=== PATIENT | male | born 1985 | race Caucasian/White ===

== ENCOUNTER 2024-08-07 09:33 | Emergency (ER) | payer OTHER, SELFPAY ==
[2024-08-07 09:36] VITALS: BP 117/78
[2024-08-07 09:55] LABS: % Basophils 0.2 % (0-2); % Eosinophils 0.4 % (0-6); % Immature Granulocytes 0.2 % (0-0.5); % Lymphocytes 23.8 % (20.5-51.1); % Monocytes 7.6 % (1.7-9.3); % Neutrophils 67.8 % (42.2-75.2); Absolute Lymphocytes 1.1 10^3/uL (1.2-3.4); Absolute Monocytes 0.4 10^3/uL (0.1-0.6); Absolute Neutrophils 3.1 10^3/uL (1.4-6.5); Hematocrit 43.4 % (39.0-52.0); Mean Corp Hgb Conc. 36.9 g/dL (33.0-37.0); Mean Corpuscular Hgb 31.4 pg (27.0-31.0); Mean Corpuscular Volume 85.1 fL (80.0-94.0); Mean Platelet Volume 9.8 fL (7.4-10.4); Nucleated Red Blood Cells % 0 % (-); Platelet Count 269 10^3/uL (130-400); Red Cell Dist. Width 11.9 % (11.5-14.5); White Blood Cell Count 4.6 10^3/uL (4.8-10.8)
[2024-08-07 10:16] LABS: ALT (SGPT) 73 U/L (0-50); AST (SGOT) 36 U/L (17-59); Albumin 5.5 g/dl (3.5-5.0); Alkaline Phosphatase 66 U/L (38-126); Blood Urea Nitrogen 15 mg/dl (9-20); Calcium 9.9 mg/dl (8.4-10.2); Carbon Dioxide 24 mmol/L (22-30); Chloride 100 mmol/L (98-107); Glucose 132 mg/dl (70-99); Potassium 5.3 mmol/L (3.5-5.1); Sodium 137 mmol/L (135-145); Total Bilirubin 0.8 mg/dl (0.2-1.3); eGFR > 60.00
--- NOTE | 2024-08-07 11:03 | ED.GENMED ---
History of Present Illness
General
Chief Complaint: Fainting/Passed Out
Source: patient
Exam Limitations: none
Time Seen by Provider: 08/07/24 10:48
History of Present Illness
History of Present Illness:
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 He was doing [employer] exercises. He felt short of breath during these exercises which is not focal for him. They then were
sitting on the mat having a discussion about 10 minutes after the exertion he was noticed to have a syncopal episode. He remembers waking up on the floor talking to the people surrounding him. He does not recall feeling any chest tightness prior
to the event. He did feel thirsty. There is no urinary incontinence. Did not bite his tongue. Initially had a slight headache which has since resolved. 2 days ago he dealt with the flu and he recovered completely from this.
Phy Exam
Physical Exam
Physical Exam:
General: Well-appearing male no acute respiratory distress
HEENT: Normocephalic atraumatic mucosa moist neck is supple
Heart: Regular rate and rhythm lungs: Clear no wheeze
Extremities: No cyanosis or edema
Skin is warm no rash
Course
Orders/Labs/Results
Orders:
Orders
08/07/24 09:39
EKG [Electrocardiogram (*1)] Urgent
Reason for Study: Syncope
08/07/24 09:40
EKG- Treatment ONCE
08/07/24 09:42
CBC/With Diff [Complete Blood Count/With Diff] Urgent
Comprehensive Metabolic Panel Urgent
08/07/24 11:01
Cardiac Monitoring- Treatment ONCE
08/07/24 11:05
0.9% Sodium Chloride 1000 ml [Nss] 1,000 ml IV BOLUS
Abnormal Lab Results
08/07/24
09:42
WBC 4.6 L 10^3/uL
(4.8-10.8)
MCH 31.4 H pg
(27.0-31.0)
Absolute Lymphs (auto) 1.1 L 10^3/uL
(1.2-3.4)
Potassium 5.3 H mmol/L
(3.5-5.1)
Glucose 132 H mg/dl
(70-99)
ALT 73 H U/L
(0-50)
Albumin 5.5 H g/dl
(3.5-5.0)
08/07/24 09:42
08/07/24 09:42
Vital Signs
Initial and Last Documented VS:
Initial Vital Signs
Temp Pulse Resp BP Pulse Ox
97.9 F 94 16 117/78 96
08/07/24 09:36 08/07/24 09:36 08/07/24 09:36 08/07/24 09:36 08/07/24 09:36
Last Documented Vital Signs
Temp Pulse Resp BP Pulse Ox
97.9 F 85 16 114/73 96
08/07/24 09:36 08/07/24 11:53 08/07/24 11:53 08/07/24 11:53 08/07/24 09:36
MDM/Problems Addressed
Differential Diagnosis Includes:
Syncope. History does not suggest seizure. Question arrhythmia versus electrolyte abnormality versus dehydration versus orthostasis
EKG shows sinus rhythm with a rate of 91. No ischemic changes. Placed on campus monitor. Fluids ordered
*Critical Care Note
Total Time (30-74mins, 75-104mins- exclusive of procedures): Not Applicable
Update Note
Update Note:
Patient hydrated here no further syncopal episodes or arrhythmias on monitor. No worrisome findings on workup. Recommend follow-up with cardiology for further workup. Stable for discharge
ED Attending Note
-
Portions of this chart may have been created with voice recognition software.� Occasional wrong word or��sound alike� substitutions may have occurred due to the inherent limitations of voice recognition software.
Discharge Plan
Departure
Patient Disposition: Home (Routine Discharge)
Date of Disposition: 08/07/24
Time of Disposition: 13:31
Patient with high blood pressure during this ER visit?: No
Discharge Problem:
Syncope
Instructions: Syncope (Fainting) (DC), Chest Pain CBC Follow Up
Referrals:
Kiirll Mar DO [Family Provider] -
Activity Restrictions/Additional Instructions:
Stay hydrated. Return here for worsening symptoms otherwise follow-up with cardiology
Interventions
Interventions:
*Risk Screen - Suicide Last Done: 08/07/24 09:36
*Neglect/Abuse Screening Last Done: 08/07/24 09:36
*ED- Fall Risk Assessment Last Done: 08/07/24 11:53
*ED COVID-19 Vaccine History Last Done: 08/07/24 11:53
ED- Cardiac Assessment Last Done: 08/07/24 11:53
ED- Neurological Assessment Last Done: 08/07/24 11:53
Discharge Date and Time
Print Language: CITIZEN OF [place]
[2024-08-07 11:53] VITALS: BP 114/73
[2024-08-07] MEDS: NSS 1000 IV (11:57)
[2024-08-07 12:00] VITALS: BP 117/77
[2024-08-07 14:20] VITALS: BP 122/73
--- NOTE | 2024-08-07 14:20 | EDRN ---
REviewed discharge instructions with patient. Verbalized understanding. Ambulated with steady gait to the lobby.
== END 2024-08-07 14:15 | disposition home or self-care (01) ==
LOC: EMR 09:33
PROVIDERS: EMERGENCY PHYSICIAN Emergency Medicine; FAMILY PHYSICIAN Family Medicine
DX: R55 Syncope and collapse (principal)
CPT/HCPCS: 99284; 96360; 80053; 85025; 93005

== ENCOUNTER → 2024-08-14 10:36 | Outpatient (REF) | payer OTHER, SELFPAY | LOC: RCS 10:36 | PROVIDERS: ATTENDING PHYSICIAN Internal Medicine Cardiovascular Disease; FAMILY PHYSICIAN Family Medicine | DX: R55 Syncope and collapse (principal) | CPT/HCPCS: 93017 ==

== ENCOUNTER → 2024-08-29 14:02 | Outpatient (REF) | payer OTHER, SELFPAY | LOC: RCS 14:02 | PROVIDERS: ATTENDING PHYSICIAN Internal Medicine Cardiovascular Disease; FAMILY PHYSICIAN Family Medicine | DX: R55 Syncope and collapse (principal) | CPT/HCPCS: 93306 ==